=== PATIENT | female | born 1995 | race African-American/Black ===

== ENCOUNTER 2017-02-13 12:49 | Emergency (ER) | payer BC, MEDICAID ==
[~2017-02-13] VITALS: Ht 172.7 cm; Wt 109.0 kg
[2017-02-13 13:50] VITALS: BP 146/80
[2017-02-13] MEDS ORDERED: DIPHENHYDRAMINE 25MG CAPSULE PO ONE (14:45)
== END 2017-02-13 14:56 | disposition home or self-care (01) ==
LOC: ER 13:54
DX: L03.211 Cellulitis of face (principal); T78.40XA Allergy, unspecified, initial encounter; E03.9 Hypothyroidism, unspecified
CPT/HCPCS: 99283; Q0163